=== PATIENT | female | born 1950 | race Two or more races ===

== ENCOUNTER → 2017-08-08 | Outpatient (REF) | payer MEDICARE ==
[2017-08-08 16:29] LABS: ALBUMIN 3.7 GM/DL (3.2-5.2); ALBUMIN/GLOBULIN RATIO 0.95 (1.00-1.93); ALKALINE PHOSPHATASE 78 U/L (45-117); ALT/SGPT 27 U/L (12-78); ANION GAP 11 MEQ/L (8-16); AST/SGOT 19 U/L (7-37); BILIRUBIN,TOTAL 0.2 MG/DL (0.2-1.0); BLOOD UREA NITROGEN 28 MG/DL (7-18); CALCIUM LEVEL 9.3 MG/DL (8.8-10.2); CARBON DIOXIDE LEVEL 22 MEQ/L (21-32); CHLORIDE LEVEL 110 MEQ/L (98-107); CREATININE FOR GFR 1.13 MG/DL (0.55-1.30); GLOMERULAR FILTRATION RATE 51.1 (>45); GLUCOSE, FASTING 130 MG/DL (70-100); POTASSIUM SERUM 4.3 MEQ/L (3.5-5.1); SODIUM LEVEL 143 MEQ/L (136-145); TOTAL PROTEIN 7.6 GM/DL (6.4-8.2)
== END ==
LOC: M SFHCPLAZ 14:27
DX: E11.8 Type 2 diabetes mellitus with unspecified complications (principal)
CPT/HCPCS: 80053

== ENCOUNTER 2017-12-07 20:04 | Inpatient (IN) | payer MEDICARE, MEDICAID ==
[2017-12-07 20:59] LABS: BASO % 0.2 % (0.0-1.0); EOS # 0.2 10^3/uL (0.0-0.50); EOS % 1.4 % (0.0-3.0); HEMATOCRIT 30.2 % (36.0-47.0); HEMOGLOBIN 9.5 g/dl (12.0-15.5); IMMATURE GRANULOCYTE % 0.3 % (0-3.0); LYMPH # 2.3 10^3/uL (1.5-4.5); LYMPH % 18.1 % (24.0-44.0); MEAN CORPUSCULAR HEMOGLOBIN 26.1 pg (27.0-33.0); MEAN CORPUSCULAR HGB CONC 31.5 g/dl (32.0-36.5); MONO % 7.7 % (0.0-5.0); NEUTROPHILS # 9.1 10^3/uL (1.8-7.7); NEUTROPHILS % 72.3 % (36.0-66.0); PLATELET COUNT, AUTOMATED 286 10^3/uL (150-450); RED BLOOD COUNT 3.64 10^6/uL (4.00-5.40); RED CELL DISTRIBUTION WIDTH 14.6 % (11.5-14.5); WHITE BLOOD COUNT 12.6 10^3/uL (4.0-10.0)
[2017-12-07] MEDS: ATORVASTATIN 20 MG TAB PO ×2 (21:00→23:00)
[2017-12-07] MEDS ORDERED: METOPROLOL TART 50 MG TAB PO (21:00)
[2017-12-07 21:03] LABS: INR 1.03; PROTHROMBIN TIME 13.7 SECONDS (12.1-14.4)
[2017-12-07 21:04] LABS: PARTIAL THROMBOPLASTIN TIME 22.1 SECONDS (25.4-37.6)
[2017-12-07 21:12] LABS: ALBUMIN 3.5 GM/DL (3.2-5.2); ALKALINE PHOSPHATASE 74 U/L (45-117); ALT/SGPT 23 U/L (12-78); ANION GAP 9 MEQ/L (8-16); AST/SGOT 21 U/L (7-37); BILIRUBIN,DIRECT < 0.1 MG/DL (0.0-0.2); BILIRUBIN,TOTAL 0.2 MG/DL (0.2-1.0); BLOOD UREA NITROGEN 27 MG/DL (7-18); C REACTIVE PROTEIN QUANTITATIV 1.15 MG/DL (0.00-0.30); CALCIUM LEVEL 9.4 MG/DL (8.8-10.2); CARBON DIOXIDE LEVEL 28 MEQ/L (21-32); CHLORIDE LEVEL 103 MEQ/L (98-107); CPK CREATINE PHOSPHOKINASE 294 U/L (26-192); CREATININE FOR GFR 1.29 MG/DL (0.55-1.30); GLOMERULAR FILTRATION RATE 43.9 (>45); GLUCOSE, FASTING 139 MG/DL (70-100); POTASSIUM SERUM 3.8 MEQ/L (3.5-5.1); SODIUM LEVEL 140 MEQ/L (136-145); TOTAL PROTEIN 7.4 GM/DL (6.4-8.2); TROPONIN I < 0.02 NG/ML (< 0.10)
[2017-12-07 21:18] LABS: CK-MB VALUE MASS 2.4 NG/ML (<3.6); MB/CK RELATIVE INDEX 0.81 (< OR =4)
[2017-12-07] MEDS: ONDANSETRON 4MG/2ML VIAL (J2405) IV (21:20)
[2017-12-07] MEDS: NS 1,000 ML IV (21:20)
[2017-12-07] MEDS: ASPIRIN 81 MG CHEW TABLET PO (23:00)
[2017-12-07] MEDS ORDERED: ADENOSINE 6MG/2ML INJECTION (J0153) As Ordered (23:08)
[2017-12-07] MEDS ORDERED: ADENOSINE 6MG/2ML INJECTION (J0153) IV (23:09)
[2017-12-08] MEDS ORDERED: METOPROLOL 5 MG/5 ML VIAL IV (00:30)
[2017-12-08 04:30] LABS: HEMATOCRIT 30.1 % (36.0-47.0); HEMOGLOBIN 9.3 g/dl (12.0-15.5); MEAN CORPUSCULAR HEMOGLOBIN 25.8 pg (27.0-33.0); MEAN CORPUSCULAR HGB CONC 30.9 g/dl (32.0-36.5); MEAN CORPUSCULAR VOLUME 83.4 fl (80.0-96.0); PLATELET COUNT, AUTOMATED 273 10^3/uL (150-450); RED BLOOD COUNT 3.61 10^6/uL (4.00-5.40); RED CELL DISTRIBUTION WIDTH 14.8 % (11.5-14.5); WHITE BLOOD COUNT 13.9 10^3/uL (4.0-10.0)
[2017-12-08 04:48] LABS: ESTIMATED AVERAGE GLUCOSE 146 MG/DL (60-110); HEMOGLOBIN A1c 6.7 %
[2017-12-08] MEDS ORDERED: PREVNAR 13 VACCINE SYRINGE (CPT CODE:90670) IM (05:15)
[2017-12-08 05:16] LABS: ALBUMIN 3.2 GM/DL (3.2-5.2); ALBUMIN/GLOBULIN RATIO 0.74 (1.00-1.93); ALKALINE PHOSPHATASE 66 U/L (45-117); ALT/SGPT 21 U/L (12-78); ANION GAP 7 MEQ/L (8-16); AST/SGOT 22 U/L (7-37); BILIRUBIN,TOTAL 0.2 MG/DL (0.2-1.0); BLOOD UREA NITROGEN 23 MG/DL (7-18); CARBON DIOXIDE LEVEL 28 MEQ/L (21-32); CHLORIDE LEVEL 105 MEQ/L (98-107); CHOLESTEROL LEVEL 158 MG/DL (<200); CHOLESTEROL RISK RATIO 2.771 (<5); CREATININE FOR GFR 1.21 MG/DL (0.55-1.30); GLOMERULAR FILTRATION RATE 47.2 (>45); GLUCOSE, FASTING 121 MG/DL (70-100); HDL CHOLESTEROL 57 MG/DL (>40); LDL CHOLESTEROL 65.6 MG/DL (<100); NON-HDL-C 101 MG/DL; POTASSIUM SERUM 3.6 MEQ/L (3.5-5.1); SODIUM LEVEL 140 MEQ/L (136-145); TOTAL PROTEIN 7.5 GM/DL (6.4-8.2); TRIGLYCERIDES LEVEL 177 MG/DL (<150)
[2017-12-08] MEDS ORDERED: PRAZOSIN 1 MG CAP PO (09:00)
[2017-12-08] MEDS: ASPIRIN 81 MG CHEW TABLET PO (09:49)
[2017-12-08] MEDS: OMEPRAZOLE 20 MG CAP PO (09:49)
[2017-12-08] MEDS: NS 1,000 ML IV ×2 (09:49→23:14)
[2017-12-08] MEDS: QUEtiapine FUMARATE 200 MG TAB PO (09:49)
[2017-12-08] MEDS: LORATADINE 10 MG TAB PO (09:50)
[2017-12-08 11:26] LABS: INR 1.05; PROTHROMBIN TIME 13.8 SECONDS (12.1-14.4)
[2017-12-08] MEDS: ATENOLOL 25 MG TAB PO (16:08)
[2017-12-08] MEDS ORDERED: PROHANCE 279.3MG/ML 15ML VIAL (A9576) As Ordered (17:12)
[2017-12-08] MEDS: NS 500 ML IV (18:29)
[2017-12-08] MEDS: WARFARIN SOD 5 MG TAB PO (18:30)
[2017-12-08] MEDS: ATENOLOL 12.5MG PER 1/2 TABLET PO (20:17)
[2017-12-08] MEDS: LATANOPROST 0.005% OPHTH SOLN 2.5 ML OU (20:19)
[2017-12-08] MEDS: ATORVASTATIN 20 MG TAB PO (20:19)
[2017-12-09 04:12] LABS: BASO % 0.3 % (0.0-1.0); EOS # 0.5 10^3/uL (0.0-0.50); EOS % 3.6 % (0.0-3.0); HEMATOCRIT 26.4 % (36.0-47.0); HEMOGLOBIN 8.2 g/dl (12.0-15.5); IMMATURE GRANULOCYTE % 0.5 % (0-3.0); LYMPH % 19.8 % (24.0-44.0); MEAN CORPUSCULAR HEMOGLOBIN 25.9 pg (27.0-33.0); MEAN CORPUSCULAR HGB CONC 31.1 g/dl (32.0-36.5); MEAN CORPUSCULAR VOLUME 83.3 fl (80.0-96.0); MONO # 1.3 10^3/uL (0.0-0.8); MONO % 8.5 % (0.0-5.0); NEUTROPHILS % 67.3 % (36.0-66.0); PLATELET COUNT, AUTOMATED 249 10^3/uL (150-450); RED BLOOD COUNT 3.17 10^6/uL (4.00-5.40); RED CELL DISTRIBUTION WIDTH 15.2 % (11.5-14.5); WHITE BLOOD COUNT 14.9 10^3/uL (4.0-10.0)
[2017-12-09 04:30] LABS: ALBUMIN 2.7 GM/DL (3.2-5.2); ALBUMIN/GLOBULIN RATIO 0.68 (1.00-1.93); ALKALINE PHOSPHATASE 55 U/L (45-117); ALT/SGPT 17 U/L (12-78); ANION GAP 6 MEQ/L (8-16); AST/SGOT 15 U/L (7-37); BILIRUBIN,TOTAL 0.2 MG/DL (0.2-1.0); BLOOD UREA NITROGEN 19 MG/DL (7-18); CALCIUM LEVEL 7.7 MG/DL (8.8-10.2); CARBON DIOXIDE LEVEL 27 MEQ/L (21-32); CHLORIDE LEVEL 109 MEQ/L (98-107); CREATININE FOR GFR 1.13 MG/DL (0.55-1.30); GLOMERULAR FILTRATION RATE 51.1 (>45); GLUCOSE, FASTING 107 MG/DL (70-100); POTASSIUM SERUM 3.9 MEQ/L (3.5-5.1); SODIUM LEVEL 142 MEQ/L (136-145); TOTAL PROTEIN 6.7 GM/DL (6.4-8.2)
[2017-12-09] MEDS: QUEtiapine FUMARATE 200 MG TAB PO (08:10)
[2017-12-09] MEDS: OMEPRAZOLE 20 MG CAP PO (08:11)
[2017-12-09] MEDS: ASPIRIN 81 MG CHEW TABLET PO (08:11)
[2017-12-09] MEDS: LORATADINE 10 MG TAB PO (08:11)
[2017-12-09] MEDS: ATENOLOL 12.5MG PER 1/2 TABLET PO ×2 (08:11→21:46)
[2017-12-09 11:35] LABS: PROTHROMBIN TIME 15.4 SECONDS (12.1-14.4)
[2017-12-09 16:10] LABS: BASO % 0.3 % (0.0-1.0); EOS # 0.8 10^3/uL (0.0-0.50); HEMATOCRIT 26.4 % (36.0-47.0); HEMOGLOBIN 8.3 g/dl (12.0-15.5); IMMATURE GRANULOCYTE % 0.3 % (0-3.0); LYMPH % 19.8 % (24.0-44.0); MEAN CORPUSCULAR HEMOGLOBIN 25.9 pg (27.0-33.0); MEAN CORPUSCULAR HGB CONC 31.4 g/dl (32.0-36.5); MEAN CORPUSCULAR VOLUME 82.5 fl (80.0-96.0); MONO # 1.4 10^3/uL (0.0-0.8); MONO % 9.1 % (0.0-5.0); NEUTROPHILS # 9.9 10^3/uL (1.8-7.7); NEUTROPHILS % 65.5 % (36.0-66.0); PLATELET COUNT, AUTOMATED 269 10^3/uL (150-450); RED CELL DISTRIBUTION WIDTH 15.2 % (11.5-14.5); WHITE BLOOD COUNT 15.2 10^3/uL (4.0-10.0)
[2017-12-09] MEDS: WARFARIN SOD 5 MG TAB PO (16:36)
[2017-12-09] MEDS: ATORVASTATIN 20 MG TAB PO (21:45)
[2017-12-09] MEDS: LATANOPROST 0.005% OPHTH SOLN 2.5 ML OU (21:45)
[2017-12-10 05:37] LABS: BASO % 0.2 % (0.0-1.0); EOS # 0.8 10^3/uL (0.0-0.50); EOS % 6.2 % (0.0-3.0); HEMATOCRIT 28.6 % (36.0-47.0); IMMATURE GRANULOCYTE % 0.4 % (0-3.0); LYMPH # 2.2 10^3/uL (1.5-4.5); LYMPH % 16.6 % (24.0-44.0); MEAN CORPUSCULAR HEMOGLOBIN 26.1 pg (27.0-33.0); MEAN CORPUSCULAR HGB CONC 31.5 g/dl (32.0-36.5); MEAN CORPUSCULAR VOLUME 82.9 fl (80.0-96.0); MONO % 7.8 % (0.0-5.0); NEUTROPHILS # 9.2 10^3/uL (1.8-7.7); NEUTROPHILS % 68.8 % (36.0-66.0); PLATELET COUNT, AUTOMATED 299 10^3/uL (150-450); RED BLOOD COUNT 3.45 10^6/uL (4.00-5.40); RED CELL DISTRIBUTION WIDTH 15.2 % (11.5-14.5); WHITE BLOOD COUNT 13.3 10^3/uL (4.0-10.0)
[2017-12-10 05:46] LABS: INR 1.58; PROTHROMBIN TIME 19.2 SECONDS (12.1-14.4)
[2017-12-10 05:56] LABS: ALBUMIN/GLOBULIN RATIO 0.71 (1.00-1.93); ALKALINE PHOSPHATASE 68 U/L (45-117); ALT/SGPT 18 U/L (12-78); ANION GAP 5 MEQ/L (8-16); AST/SGOT 15 U/L (7-37); BILIRUBIN,TOTAL 0.1 MG/DL (0.2-1.0); BLOOD UREA NITROGEN 19 MG/DL (7-18); CALCIUM LEVEL 8.3 MG/DL (8.8-10.2); CARBON DIOXIDE LEVEL 27 MEQ/L (21-32); CHLORIDE LEVEL 109 MEQ/L (98-107); CREATININE FOR GFR 1.04 MG/DL (0.55-1.30); GLOMERULAR FILTRATION RATE 56.3 (>45); GLUCOSE, FASTING 120 MG/DL (70-100); MAGNESIUM LEVEL 2.1 MG/DL (1.8-2.4); SODIUM LEVEL 141 MEQ/L (136-145); TOTAL PROTEIN 7.2 GM/DL (6.4-8.2)
[2017-12-10] MEDS: LORATADINE 10 MG TAB PO (08:15)
[2017-12-10] MEDS: QUEtiapine FUMARATE 200 MG TAB PO (08:15)
[2017-12-10] MEDS: OMEPRAZOLE 20 MG CAP PO (08:15)
[2017-12-10] MEDS: ATENOLOL 12.5MG PER 1/2 TABLET PO (08:16)
== END 2017-12-10 14:35 | disposition home health service (06) | DRG 65 ==
LOC: M ED INP 12-08 00:21 → M ICU 12-08 02:23 → M ED 20:04
DX: I63.441 Cerebral infarction due to embolism of right cerebellar artery (principal); G81.94 Hemiplegia, unspecified affecting left nondominant side; I48.0 Paroxysmal atrial fibrillation; I10 Essential (primary) hypertension; E78.2 Mixed hyperlipidemia; F32.9 Major depressive disorder, single episode, unspecified; F41.9 Anxiety disorder, unspecified; D64.9 Anemia, unspecified; K21.9 Gastro-esophageal reflux disease without esophagitis; R26.81 Unsteadiness on feet; E66.3 Overweight; F40.240 Claustrophobia; Z79.84 Long term (current) use of oral hypoglycemic drugs; Z79.899 Other long term (current) drug therapy; Z88.1 Allergy status to other antibiotic agents; Z68.29 Body mass index [BMI] 29.0-29.9, adult; R29.810 Facial weakness

== ENCOUNTER → 2017-12-11 | Outpatient (REF) | payer MEDICARE, MEDICAID ==
[2017-12-11 12:53] LABS: INR 2.93; PROTHROMBIN TIME 31.2 SECONDS (12.1-14.4)
== END ==
LOC: M LABDRAWP 11:45
DX: I63.10 Cerebral infarction due to embolism of unspecified precerebral artery (principal)
CPT/HCPCS: 85610

== ENCOUNTER → 2017-12-16 | Outpatient (REF) | payer MEDICARE, MEDICAID ==
[2017-12-16 17:49] LABS: BASO % 0.3 % (0.0-1.0); EOS # 0.6 10^3/uL (0.0-0.50); EOS % 4.9 % (0.0-3.0); HEMATOCRIT 30.1 % (36.0-47.0); HEMOGLOBIN 9.1 g/dl (12.0-15.5); IMMATURE GRANULOCYTE % 0.6 % (0-3.0); LYMPH # 3.5 10^3/uL (1.5-4.5); LYMPH % 26.7 % (24.0-44.0); MEAN CORPUSCULAR HEMOGLOBIN 25.3 pg (27.0-33.0); MEAN CORPUSCULAR HGB CONC 30.2 g/dl (32.0-36.5); MEAN CORPUSCULAR VOLUME 83.6 fl (80.0-96.0); MONO # 1.1 10^3/uL (0.0-0.8); NEUTROPHILS # 7.8 10^3/uL (1.8-7.7); NEUTROPHILS % 59.5 % (36.0-66.0); PLATELET COUNT, AUTOMATED 412 10^3/uL (150-450); RED CELL DISTRIBUTION WIDTH 14.9 % (11.5-14.5); WHITE BLOOD COUNT 13.2 10^3/uL (4.0-10.0)
[2017-12-16 18:07] LABS: PROTHROMBIN TIME 72.4 SECONDS (12.1-14.4)
[2017-12-16 18:08] LABS: PARTIAL THROMBOPLASTIN TIME 57.5 SECONDS (25.4-37.6)
[2017-12-16 18:15] LABS: ALBUMIN 3.2 GM/DL (3.2-5.2); ANION GAP 9 MEQ/L (8-16); BLOOD UREA NITROGEN 26 MG/DL (7-18); CALCIUM LEVEL 9.5 MG/DL (8.8-10.2); CARBON DIOXIDE LEVEL 27 MEQ/L (21-32); CHLORIDE LEVEL 105 MEQ/L (98-107); CREATININE FOR GFR 1.41 MG/DL (0.55-1.30); FERRITIN 9 NG/ML (8-252); GLOMERULAR FILTRATION RATE 39.6 (>45); GLUCOSE, FASTING 99 MG/DL (70-100); IRON (FE) 18 UG/DL (50-170); PERCENT SATURATION 4.5 % (13.2-45.0); PHOSPHORUS LEVEL 4.2 MG/DL (2.5-4.9); POTASSIUM SERUM 5.1 MEQ/L (3.5-5.1); SODIUM LEVEL 141 MEQ/L (136-145); TOTAL IRON BINDING CAPACITY 399 UG/DL (250-450)
[2017-12-16 18:21] LABS: CARCINOEMBRYONIC ANTIGEN < 0.5 NG/ML (<2.5); VITAMIN B12 LEVEL 724 PG/ML (247-911)
[2017-12-16 18:41] LABS: INR 8.45
== END ==
LOC: M LABDRAWP 17:32
DX: I63.10 Cerebral infarction due to embolism of unspecified precerebral artery (principal); D50.9 Iron deficiency anemia, unspecified; I10 Essential (primary) hypertension; E78.5 Hyperlipidemia, unspecified; Z79.01 Long term (current) use of anticoagulants
CPT/HCPCS: 82378

== ENCOUNTER → 2017-12-17 | Outpatient (REF) | payer MEDICARE ==
[2017-12-17 11:43] LABS: BASO # 0.1 10^3/uL (0.0-0.2); BASO % 0.4 % (0.0-1.0); EOS # 0.7 10^3/uL (0.0-0.50); EOS % 5.8 % (0.0-3.0); HEMATOCRIT 31.1 % (36.0-47.0); HEMOGLOBIN 9.5 g/dl (12.0-15.5); IMMATURE GRANULOCYTE % 0.5 % (0-3.0); LYMPH # 2.6 10^3/uL (1.5-4.5); LYMPH % 21.1 % (24.0-44.0); MEAN CORPUSCULAR HEMOGLOBIN 25.7 pg (27.0-33.0); MEAN CORPUSCULAR HGB CONC 30.5 g/dl (32.0-36.5); MEAN CORPUSCULAR VOLUME 84.3 fl (80.0-96.0); MONO # 0.8 10^3/uL (0.0-0.8); MONO % 6.7 % (0.0-5.0); NEUTROPHILS # 8.1 10^3/uL (1.8-7.7); NEUTROPHILS % 65.5 % (36.0-66.0); PLATELET COUNT, AUTOMATED 444 10^3/uL (150-450); RED BLOOD COUNT 3.69 10^6/uL (4.00-5.40); WHITE BLOOD COUNT 12.3 10^3/uL (4.0-10.0)
[2017-12-17 11:57] LABS: PARTIAL THROMBOPLASTIN TIME 62.8 SECONDS (25.4-37.6); PROTHROMBIN TIME 71.7 SECONDS (12.1-14.4)
[2017-12-17 11:59] LABS: INR 8.35
== END ==
LOC: M SFHCPLAZ 10:06
DX: I63.10 Cerebral infarction due to embolism of unspecified precerebral artery (principal)
CPT/HCPCS: 85610

== ENCOUNTER → 2017-12-18 | Outpatient (REF) | payer MEDICARE ==
[2017-12-18 12:48] LABS: PARTIAL THROMBOPLASTIN TIME 56.4 SECONDS (25.4-37.6); PROTHROMBIN TIME 70.5 SECONDS (12.1-14.4)
[2017-12-18 13:09] LABS: INR 8.17
== END ==
LOC: M LABDRAWP 12:05
DX: Z51.81 Encounter for therapeutic drug level monitoring (principal); Z79.01 Long term (current) use of anticoagulants
CPT/HCPCS: 85610

== ENCOUNTER → 2018-04-20 | Outpatient (REF) | payer MEDICARE ==
[2018-04-20 16:03] LABS: BASO % 0.3 % (0.0-1.0); EOS # 0.5 10^3/uL (0.0-0.50); EOS % 4.2 % (0.0-3.0); HEMOGLOBIN 7.7 g/dl (12.0-15.5); IMMATURE GRANULOCYTE % 0.3 % (0-3.0); LYMPH # 2.5 10^3/uL (1.5-4.5); LYMPH % 21.7 % (24.0-44.0); MEAN CORPUSCULAR HEMOGLOBIN 22.1 pg (27.0-33.0); MEAN CORPUSCULAR HGB CONC 28.5 g/dl (32.0-36.5); MEAN CORPUSCULAR VOLUME 77.4 fl (80.0-96.0); MONO # 1.2 10^3/uL (0.0-0.8); MONO % 10.5 % (0.0-5.0); NEUTROPHILS # 7.4 10^3/uL (1.8-7.7); PLATELET COUNT, AUTOMATED 330 10^3/uL (150-450); RED BLOOD COUNT 3.49 10^6/uL (4.00-5.40); RED CELL DISTRIBUTION WIDTH 17.2 % (11.5-14.5); WHITE BLOOD COUNT 11.7 10^3/uL (4.0-10.0)
[2018-04-20 16:23] LABS: ESTIMATED AVERAGE GLUCOSE 154 MG/DL (60-110)
[2018-04-20 16:37] LABS: ALBUMIN 3.1 GM/DL (3.2-5.2); ALBUMIN/GLOBULIN RATIO 0.79 (1.00-1.93); ALKALINE PHOSPHATASE 73 U/L (45-117); ALT/SGPT 25 U/L (12-78); ANION GAP 11 MEQ/L (8-16); AST/SGOT 22 U/L (7-37); BILIRUBIN,TOTAL 0.3 MG/DL (0.2-1.0); BLOOD UREA NITROGEN 16 MG/DL (7-18); CALCIUM LEVEL 8.5 MG/DL (8.8-10.2); CARBON DIOXIDE LEVEL 23 MEQ/L (21-32); CHLORIDE LEVEL 109 MEQ/L (98-107); CHOLESTEROL LEVEL 141 MG/DL (<200); CREATININE FOR GFR 1.11 MG/DL (0.55-1.30); FERRITIN 5 NG/ML (8-252); GLOMERULAR FILTRATION RATE 52.2 (>45); GLUCOSE, FASTING 99 MG/DL (70-100); HDL CHOLESTEROL 53 MG/DL (>40); IRON (FE) 11 UG/DL (50-170); LDL CHOLESTEROL 57 MG/DL (<100); NON-HDL-C 88 MG/DL; PERCENT SATURATION 2.5 % (13.2-45.0); POTASSIUM SERUM 4.3 MEQ/L (3.5-5.1); SODIUM LEVEL 143 MEQ/L (136-145); TOTAL IRON BINDING CAPACITY 434 UG/DL (250-450); TRIGLYCERIDES LEVEL 154 MG/DL (<150)
== END ==
LOC: M SFHCPLAZ 14:03
DX: D50.9 Iron deficiency anemia, unspecified (principal); E78.5 Hyperlipidemia, unspecified; E11.8 Type 2 diabetes mellitus with unspecified complications
CPT/HCPCS: 83550

== ENCOUNTER 2018-04-21 08:53 | Observation (INO) | payer MEDICARE ==
[2018-04-21 09:43] LABS: BASO % 0.3 % (0.0-1.0); EOS # 0.4 10^3/uL (0.0-0.50); EOS % 3.5 % (0.0-3.0); HEMATOCRIT 25.4 % (36.0-47.0); HEMOGLOBIN 7.5 g/dl (12.0-15.5); IMMATURE GRANULOCYTE % 0.2 % (0-3.0); LYMPH # 2.3 10^3/uL (1.5-4.5); LYMPH % 18.9 % (24.0-44.0); MEAN CORPUSCULAR HEMOGLOBIN 22.3 pg (27.0-33.0); MEAN CORPUSCULAR HGB CONC 29.5 g/dl (32.0-36.5); MEAN CORPUSCULAR VOLUME 75.6 fl (80.0-96.0); MONO # 1.2 10^3/uL (0.0-0.8); MONO % 9.9 % (0.0-5.0); NEUTROPHILS # 8.4 10^3/uL (1.8-7.7); NEUTROPHILS % 67.2 % (36.0-66.0); PLATELET COUNT, AUTOMATED 361 10^3/uL (150-450); RED BLOOD COUNT 3.36 10^6/uL (4.00-5.40); RED CELL DISTRIBUTION WIDTH 17.2 % (11.5-14.5); WHITE BLOOD COUNT 12.4 10^3/uL (4.0-10.0)
[2018-04-21 10:01] LABS: INR 2.03; PARTIAL THROMBOPLASTIN TIME 34.3 SECONDS (25.4-37.6); PROTHROMBIN TIME 23.4 SECONDS (12.1-14.4)
[2018-04-21 10:11] LABS: ALBUMIN/GLOBULIN RATIO 0.77 (1.00-1.93); ALKALINE PHOSPHATASE 64 U/L (45-117); ALT/SGPT 25 U/L (12-78); ANION GAP 9 MEQ/L (8-16); AST/SGOT 21 U/L (7-37); BILIRUBIN,DIRECT < 0.1 MG/DL (0.0-0.2); BILIRUBIN,TOTAL 0.2 MG/DL (0.2-1.0); BLOOD UREA NITROGEN 17 MG/DL (7-18); CALCIUM LEVEL 8.7 MG/DL (8.8-10.2); CARBON DIOXIDE LEVEL 24 MEQ/L (21-32); CHLORIDE LEVEL 110 MEQ/L (98-107); CPK CREATINE PHOSPHOKINASE 281 U/L (26-192); CREATININE FOR GFR 1.22 MG/DL (0.55-1.30); GLOMERULAR FILTRATION RATE 46.8 (>45); GLUCOSE, FASTING 106 MG/DL (70-100); MB/CK RELATIVE INDEX 1.32 (< OR =4); POTASSIUM SERUM 4.7 MEQ/L (3.5-5.1); SODIUM LEVEL 143 MEQ/L (136-145); TOTAL PROTEIN 6.9 GM/DL (6.4-8.2); TROPONIN I 0.03 NG/ML (< 0.10)
[2018-04-21 13:22] LABS: IMMEDIATE SPIN CROSSMATCH 1 2
[2018-04-21 14:05] LABS: CPK CREATINE PHOSPHOKINASE 261 U/L (26-192); MB/CK RELATIVE INDEX 1.26 (< OR =4); TROPONIN I 0.03 NG/ML (< 0.10)
== END 2018-04-21 15:18 | disposition home or self-care (01) ==
LOC: M ED 08:53 → M ED INP 12:59
DX: D64.9 Anemia, unspecified (principal); K92.1 Melena; Z86.73 Personal history of transient ischemic attack (TIA), and cerebral infarction without residual deficits; Z79.01 Long term (current) use of anticoagulants; I48.91 Unspecified atrial fibrillation; E11.9 Type 2 diabetes mellitus without complications; I10 Essential (primary) hypertension; I25.2 Old myocardial infarction; Z88.1 Allergy status to other antibiotic agents
CPT/HCPCS: 93005

== ENCOUNTER → 2018-05-12 | Outpatient (REF) | payer MEDICARE ==
[~2018-05-12] MED LIST: /ESOM40CA OR; /WARF3TA OR; ABIL10TA OR; ACET65TA OR; AMBI10TA OR; AMLO2.5T2 PO; AMLO5TAB4 PO; AMLODIPINE PO; ATEN25TA PO; ATOR1TAB21 PO; ATOR40TA75 PO; AUGM875T28 PO; BENT20TA OR; BENZ1TAB OR; CLOT1CRE6 TOP; CLOTPOW TOP; COLA100C2 OR; DEPA500T2 OR; FLUTICASONE; FLUTISP NARES; HYDR25TA8 OR; LATA5OPD OU; LATANOPROST; LIPI10TA OR; LORA-243 PO; METF10004 PO; MULTIVIT PO; OMEP40CA2 PO; PAXI20TA OR; PRAV80TA2 PO; PRAVASTATIN PO; PRAZ2CAP PO; PRAZOSIN; QUET30TA OR; QUET400T PO; QUETIAPINE; SENO8.6T5 OR; SING10TA31 OR; SYMB80AE IN; TRAM50TA2 OR; VENTAER IN; WARF-23 PO; XALA0.007 OU; XARE20TA PO
[2018-05-12 18:06] LABS: BASO # 0.1 10^3/uL (0.0-0.2); BASO % 0.4 % (0.0-1.0); EOS # 0.6 10^3/uL (0.0-0.50); EOS % 4.7 % (0.0-3.0); HEMATOCRIT 36.2 % (36.0-47.0); HEMOGLOBIN 10.6 g/dl (12.0-15.5); LYMPH % 25.6 % (24.0-44.0); MEAN CORPUSCULAR HEMOGLOBIN 23.9 pg (27.0-33.0); MEAN CORPUSCULAR HGB CONC 29.3 g/dl (32.0-36.5); MEAN CORPUSCULAR VOLUME 81.5 fl (80.0-96.0); MONO # 0.8 10^3/uL (0.0-0.8); NEUTROPHILS # 7.3 10^3/uL (1.8-7.7); PLATELET COUNT, AUTOMATED 349 10^3/uL (150-450); RED BLOOD COUNT 4.44 10^6/uL (4.00-5.40); WHITE BLOOD COUNT 11.8 10^3/uL (4.0-10.0)
[2018-05-12 18:56] LABS: PERCENT SATURATION 7.7 % (13.2-45.0)
== END ==
LOC: M SFHCPLAZ 15:11
PROVIDERS: ATTEND Physician Assistant Medical
DX: D50.9 Iron deficiency anemia, unspecified (principal); E11.8 Type 2 diabetes mellitus with unspecified complications
CPT/HCPCS: 36415; 69209; 82728; 83036; 83550; 85025; G0463

== ENCOUNTER → 2018-08-11 | Outpatient (REF) | payer MEDICARE ==
[~2018-08-11] MED LIST changes: -AMLO2.5T2 PO; +AMLO2.5T3 PO; -AMLO5TAB4 PO; +AMLO5TAB6 PO
[2018-08-11 18:37] LABS: BASO % 0.3 % (0.0-1.0); EOS # 0.4 10^3/uL (0.0-0.50); EOS % 3.4 % (0.0-3.0); HEMATOCRIT 36.7 % (36.0-47.0); HEMOGLOBIN 11.5 g/dl (12.0-15.5); LYMPH # 2.9 10^3/uL (1.5-4.5); MEAN CORPUSCULAR HEMOGLOBIN 26.8 pg (27.0-33.0); MEAN CORPUSCULAR HGB CONC 31.3 g/dl (32.0-36.5); MEAN CORPUSCULAR VOLUME 85.5 fl (80.0-96.0); MONO # 0.8 10^3/uL (0.0-0.8); MONO % 7.3 % (0.0-5.0); NEUTROPHILS # 6.6 10^3/uL (1.8-7.7); NEUTROPHILS % 61.8 % (36.0-66.0); PLATELET COUNT, AUTOMATED 315 10^3/uL (150-450); RED BLOOD COUNT 4.29 10^6/uL (4.00-5.40); WHITE BLOOD COUNT 10.7 10^3/uL (4.0-10.0)
[2018-08-11 18:47] LABS: FREE T4 0.7 NG/DL (0.76-1.46); THYROID STIMULATING HORMONE 1.41 uIU/ML (0.358-3.740)
[2018-08-11 19:26] LABS: HEMOGLOBIN A1c 6.6 %
== END ==
LOC: M SFHCPLAZ 15:09
PROVIDERS: ATTEND Physician Assistant Medical
DX: D50.9 Iron deficiency anemia, unspecified (principal); F41.8 Other specified anxiety disorders; E11.8 Type 2 diabetes mellitus with unspecified complications

== ENCOUNTER 2018-11-13 00:26 | Emergency (ER) | payer MEDICARE ==
[~2018-11-13] VITALS: Ht 167.6 cm; Wt 90.9 kg
[~2018-11-13 00:26] MED LIST changes: -/ESOM40CA OR; -/WARF3TA OR; +CLOT1CRE2 TOP; -CLOT1CRE6 TOP; +COUM1TAB19 OR; +LATA0.0013 OU; -LATA5OPD OU; +NEXI1CAP3 OR
[2018-11-13] MEDS ORDERED: traMADol 50 MG TAB PO ONE (01:30)
[2018-11-13 02:17] VITALS: BP 133/79
--- NOTE | 2018-11-13 08:51 | REP ---
RIGHT FOOT, FOUR VIEWS: There is no evidence of an acute fracture, dislocation or intrinsic bone disease. There is mild posterior calcaneal spurring. IMPRESSION: No fracture or dislocation. Electronically Signed by Kenneth Kumar MD 11/13/2018 07:23 P
== END 2018-11-13 02:23 | disposition home or self-care (01) ==
LOC: M ED 00:26
DX: S93.601A Unspecified sprain of right foot, initial encounter (principal); X50.1XXA Overexertion from prolonged static or awkward postures, initial encounter; Y92.098 Other place in other non-institutional residence as the place of occurrence of the external cause; I10 Essential (primary) hypertension; E11.9 Type 2 diabetes mellitus without complications; E78.5 Hyperlipidemia, unspecified; I25.2 Old myocardial infarction; M19.90 Unspecified osteoarthritis, unspecified site; K21.9 Gastro-esophageal reflux disease without esophagitis; Z86.73 Personal history of transient ischemic attack (TIA), and cerebral infarction without residual deficits; Z88.1 Allergy status to other antibiotic agents; Z79.899 Other long term (current) drug therapy; Z79.84 Long term (current) use of oral hypoglycemic drugs; Z79.01 Long term (current) use of anticoagulants

== ENCOUNTER → 2018-11-24 | Outpatient (REF) | payer MEDICARE ==
[2018-11-24 13:40] LABS: BASO # 0.1 10^3/uL (0.0-0.2); BASO % 0.5 % (0.0-1.0); EOS # 0.7 10^3/uL (0.0-0.50); EOS % 6.2 % (0.0-3.0); HEMATOCRIT 38.2 % (36.0-47.0); HEMOGLOBIN 11.8 g/dl (12.0-15.5); LYMPH # 2.3 10^3/uL (1.5-4.5); LYMPH % 21.4 % (24.0-44.0); MEAN CORPUSCULAR HEMOGLOBIN 27.8 pg (27.0-33.0); MEAN CORPUSCULAR HGB CONC 30.9 g/dl (32.0-36.5); MEAN CORPUSCULAR VOLUME 89.9 fl (80.0-96.0); MONO # 0.8 10^3/uL (0.0-0.8); MONO % 7.7 % (0.0-5.0); NEUTROPHILS # 6.9 10^3/uL (1.8-7.7); NEUTROPHILS % 63.8 % (36.0-66.0); PLATELET COUNT, AUTOMATED 367 10^3/uL (150-450); RED BLOOD COUNT 4.25 10^6/uL (4.00-5.40); WHITE BLOOD COUNT 10.8 10^3/uL (4.0-10.0)
[2018-11-24 14:06] LABS: ALBUMIN 3.7 GM/DL (3.2-5.2); BILIRUBIN,TOTAL 0.2 MG/DL (0.2-1.0); CALCIUM LEVEL 12.4 MG/DL (8.8-10.2); CREATININE FOR GFR 1.68 MG/DL (0.55-1.30); GLOMERULAR FILTRATION RATE 32.3 (>45); PERCENT SATURATION 12.1 % (13.2-45.0); POTASSIUM SERUM 4.6 MEQ/L (3.5-5.1)
== END ==
LOC: M SFHCPLAZ 10:51
PROVIDERS: ATTEND Physician Assistant Medical
DX: E78.00 Pure hypercholesterolemia, unspecified (principal); E66.9 Obesity, unspecified; D50.9 Iron deficiency anemia, unspecified
CPT/HCPCS: 36415; 80053; 82728; 83036; 83550; 85025; G0463

== ENCOUNTER → 2018-12-24 | Outpatient (CLI) | payer MEDICARE, MEDICAID ==
--- NOTE | 2018-12-24 12:09 | REP ---
BILATERAL SCREENING DIGITAL MAMMOGRAM WITH 3D TOMOSYNTHESIS: There are no palpable abnormalities or other breast complaints. The the patient states she is not had a clinical breast examination in over a year. The the patient states she performs self-breast examinations 12 times per year. The Tyrer-Cuzick Score is: 4.2% . Comparison is 12/25/2012. There are scattered areas of fibroglandular density. There is no dominant mass, micro calcific cluster or architectural distortion that would indicate malignancy. There are no additional findings on 3D tomosynthesiss. There is no change from the prior study. Impression: BIRADS/ACR category 1 mammogram. Negative. Recommendation: Routine annual screening mammography. This mammogram was interpreted with the aid of a FDA approved computer-aided detection system. A. Negative mammogram reports should not delay biopsy if a dominant or clinically suspicious mass is present. B. Not all breast cancers are identified by mammography or tomosynthesis. C. Adenosis and dense breasts may obscure an underlying neoplasm. Patient letter M1. Electronically Signed by Kenneth Stephens MD 12/24/2018 12:01 P
== END ==
LOC: M WHC 10:44
PROVIDERS: ATTEND Physician Assistant Medical
DX: Z12.31 Encounter for screening mammogram for malignant neoplasm of breast (principal)

== ENCOUNTER 2019-03-08 17:36 | Emergency (ER) | payer MEDICAID, MEDICARE, OTHER ==
[~2019-03-08] VITALS: Ht 167.6 cm; Wt 90.9 kg
[2019-03-08 18:07] VITALS: BP 145/69
[2019-03-08] MEDS ORDERED: TAB-TAB3 PO (18:12)
[2019-03-08] MEDS ORDERED: INGR80CA PO (18:12)
[2019-03-08] MEDS ORDERED: ACETAMINOPHEN TAB 650MG DOSE (2X325MG) PO ONE (18:30)
--- NOTE | 2019-03-08 19:42 | REP ---
Bilateral knee series: 10 views. History: Trauma. Findings: Five views of each knee are presented. There is no visible fracture on either side. No subluxation or joint effusion is evident. Impression: Negative five view radiographs of each knee. Electronically Signed by Isael Louise MD 03/08/2019 07:33 P
--- NOTE | 2019-03-09 07:13 | REP ---
RIGHT HAND SERIES: Four views. HISTORY: Trauma. FINDINGS: Four views of the right hand demonstrate diffuse osteopenia. There are metallic rings overlying the proximal phalanges of the long and ring finger. No fracture or subluxation is visible. There is mild osteoarthritic spurring at the DIP joints of the fingers. IMPRESSION: Osteoarthritic changes. No traumatic abnormality noted. Metallic rings in place over the proximal phalanges of the long and ring fingers. Electronically Signed by Isael Louise MD 03/09/2019 07:46 A
== END 2019-03-08 19:57 | disposition home or self-care (01) ==
LOC: M ED 17:36
DX: Z04.1 Encounter for examination and observation following transport accident (principal); T14.8XXA Other injury of unspecified body region, initial encounter; V49.49XA Driver injured in collision with other motor vehicles in traffic accident, initial encounter; Y92.410 Unspecified street and highway as the place of occurrence of the external cause; I10 Essential (primary) hypertension; E11.9 Type 2 diabetes mellitus without complications; F33.9 Major depressive disorder, recurrent, unspecified; F41.9 Anxiety disorder, unspecified; K21.9 Gastro-esophageal reflux disease without esophagitis; E78.5 Hyperlipidemia, unspecified; Z79.899 Other long term (current) drug therapy; Z79.84 Long term (current) use of oral hypoglycemic drugs; Z79.01 Long term (current) use of anticoagulants; Z88.1 Allergy status to other antibiotic agents

== ENCOUNTER → 2019-06-10 | Outpatient (REF) | payer MEDICARE, MEDICAID ==
[~2019-06-10] MED LIST changes: +INGR80CA PO; -OMEP40CA2 PO; +OMEP40CA97 PO; +TAB-TAB3 PO
[2019-06-10 16:53] LABS: BASO # 0.1 10^3/uL (0.0-0.2); BASO % 0.5 % (0.0-1.0); EOS # 0.4 10^3/uL (0.0-0.5); EOS % 4.3 % (0.0-3.0); HEMATOCRIT 40.5 % (36.0-47.0); HEMOGLOBIN 12.9 g/dl (12.0-15.5); LYMPH # 2.3 10^3/uL (1.5-5.0); LYMPH % 23.7 % (24.0-44.0); MEAN CORPUSCULAR HEMOGLOBIN 27.8 pg (27.0-33.0); MEAN CORPUSCULAR HGB CONC 31.9 g/dl (32.0-36.5); MEAN CORPUSCULAR VOLUME 87.3 fl (80.0-96.0); MONO # 0.6 10^3/uL (0.0-0.8); MONO % 6.5 % (0.0-5.0); NEUTROPHILS # 6.2 10^3/uL (1.5-8.5); NEUTROPHILS % 64.3 % (36.0-66.0); PLATELET COUNT, AUTOMATED 264 10^3/uL (150-450); RED BLOOD COUNT 4.64 10^6/uL (4.00-5.40); WHITE BLOOD COUNT 9.6 10^3/uL (4.0-10.0)
[2019-06-10 17:01] LABS: ALBUMIN 3.7 GM/DL (3.2-5.2); BILIRUBIN,TOTAL 0.2 MG/DL (0.2-1.0); CALCIUM LEVEL 9.2 MG/DL (8.8-10.2); CHOLESTEROL RISK RATIO 2.754 (<5); CREATININE FOR GFR 1.22 MG/DL (0.55-1.30); GLOMERULAR FILTRATION RATE 46.5 (>45); POTASSIUM SERUM 4.6 MEQ/L (3.5-5.1); TOTAL PROTEIN 7.3 GM/DL (6.4-8.2)
[2019-06-10 17:21] LABS: HEMOGLOBIN A1c 6.8 %
== END ==
LOC: M SFHCPLAZ 13:50
PROVIDERS: ATTEND Physician Assistant Medical
DX: E78.00 Pure hypercholesterolemia, unspecified (principal); E66.9 Obesity, unspecified; E11.8 Type 2 diabetes mellitus with unspecified complications
CPT/HCPCS: 36415; 80053; 80061; 82550; 82728; 83036; 83540; 85025; G0463

== ENCOUNTER → 2020-04-04 | Outpatient (REF) | payer MEDICARE, MEDICAID ==
[~2020-04-04] MED LIST changes: +AMLO1TAB24 PO; -AMLO5TAB6 PO; -CLOT1CRE2 TOP; +CLOT1CRE56 TOP
[2020-04-04 14:00] LABS: BASO # 0.1 10^3/uL (0.0-0.2); BASO % 0.5 % (0.0-1.0); EOS # 0.5 10^3/uL (0.0-0.5); EOS % 5.4 % (0.0-3.0); HEMATOCRIT 37.9 % (36.0-47.0); HEMOGLOBIN 11.3 g/dl (12.0-15.5); LYMPH # 2.3 10^3/uL (1.5-5.0); LYMPH % 23.4 % (24.0-44.0); MEAN CORPUSCULAR HEMOGLOBIN 26.4 pg (27.0-33.0); MEAN CORPUSCULAR HGB CONC 29.8 g/dl (32.0-36.5); MEAN CORPUSCULAR VOLUME 88.6 fl (80.0-96.0); MONO # 0.9 10^3/uL (0.0-0.8); MONO % 9.6 % (0.0-5.0); NEUTROPHILS % 60.9 % (36.0-66.0); PLATELET COUNT, AUTOMATED 347 10^3/uL (150-450); RED BLOOD COUNT 4.28 10^6/uL (4.00-5.40); WHITE BLOOD COUNT 9.8 10^3/uL (4.0-10.0)
[2020-04-04 14:20] LABS: HEMOGLOBIN A1c 5.7 %
[2020-04-04 14:40] LABS: ALBUMIN 3.9 GM/DL (3.2-5.2); BILIRUBIN,TOTAL 0.3 MG/DL (0.2-1.0); CALCIUM LEVEL 10.9 MG/DL (8.8-10.2); CHOLESTEROL RISK RATIO 2.274 (<5); CREATININE FOR GFR 1.2 MG/DL (0.55-1.30); FREE T4 0.86 NG/DL (0.76-1.46); GLOMERULAR FILTRATION RATE 47.4 (>45); POTASSIUM SERUM 4.2 MEQ/L (3.5-5.1); THYROID STIMULATING HORMONE 2.05 uIU/ML (0.358-3.740); TOTAL PROTEIN 7.6 GM/DL (6.4-8.2)
[2020-04-04 15:09] LABS: CREATININE, URINE 92.2 MG/DL; MALB URINE SIEMENS 17.5 MG/L; MAU/CREAT RATIO 18.9 MCG/MG (0.0-30.0)
== END ==
LOC: M SFHCPLAZ 10:41
PROVIDERS: ATTEND Physician Assistant Medical
DX: E11.8 Type 2 diabetes mellitus with unspecified complications (principal); D50.9 Iron deficiency anemia, unspecified; F41.8 Other specified anxiety disorders; E78.00 Pure hypercholesterolemia, unspecified
CPT/HCPCS: 36415; 80053; 80061; 82043; 82550; 82728; 83036; 83540; 84439; 84443; 85025; G0463

== ENCOUNTER → 2022-01-09 | Outpatient (CLI) | payer MEDICARE, MEDICAID ==
[~2022-01-09] MED LIST changes: +OMEP40CA4 PO; -OMEP40CA97 PO; -QUET400T PO; +QUET400T2 PO
[2022-01-09 14:27] LABS: BASO % 0.5 % (0.0-1.0); EOS # 0.4 10^3/uL (0.0-0.5); EOS % 4.8 % (0.0-3.0); HEMATOCRIT 43.1 % (36.0-47.0); HEMOGLOBIN 13.9 g/dl (12.0-15.5); LYMPH # 1.6 10^3/uL (1.5-5.0); MEAN CORPUSCULAR HEMOGLOBIN 30.9 pg (27.0-33.0); MEAN CORPUSCULAR HGB CONC 32.3 g/dl (32.0-36.5); MEAN CORPUSCULAR VOLUME 95.8 fl (80.0-96.0); MONO # 0.5 10^3/uL (0.0-0.8); MONO % 6.4 % (2.0-8.0); NEUTROPHILS # 5.8 10^3/uL (1.5-8.5); NEUTROPHILS % 69.1 % (36.0-66.0); PLATELET COUNT, AUTOMATED 263 10^3/uL (150-450); WHITE BLOOD COUNT 8.4 10^3/uL (4.0-10.0)
[2022-01-09 15:09] LABS: ALBUMIN 3.6 GM/DL (3.2-5.2); BILIRUBIN,TOTAL 0.3 MG/DL (0.2-1.0); CALCIUM LEVEL 9.4 MG/DL (8.8-10.2); CHOLESTEROL RISK RATIO 2.592 (<5); CREATININE FOR GFR 1.35 MG/DL (0.55-1.30); GLOMERULAR FILTRATION RATE 41.2 (>39); POTASSIUM SERUM 4.4 MEQ/L (3.5-5.1); TOTAL PROTEIN 7.3 GM/DL (6.4-8.2)
[2022-01-09 17:28] LABS: HEMOGLOBIN A1c 5.7 %
== END ==
LOC: M LAB 13:31
PROVIDERS: ATTEND Physician Assistant
DX: Z79.899 Other long term (current) drug therapy (principal)

== ENCOUNTER → 2022-04-11 | Outpatient (REF) | payer MEDICARE, MEDICAID ==
[2022-04-11 18:42] LABS: ALBUMIN 3.3 GM/DL (3.2-5.2); BILIRUBIN,TOTAL 0.2 MG/DL (0.2-1.0); CALCIUM LEVEL 9.3 MG/DL (8.8-10.2); CHOLESTEROL RISK RATIO 2.849 (<5); CREATININE FOR GFR 1.2 MG/DL (0.55-1.30); GLOMERULAR FILTRATION RATE 47.1 (>39); POTASSIUM SERUM 4.4 MEQ/L (3.5-5.1); THYROID STIMULATING HORMONE 1.96 uIU/ML (0.358-3.740); TOTAL PROTEIN 6.9 GM/DL (6.4-8.2)
[2022-04-11 19:25] LABS: HEMOGLOBIN A1c 5.6 %
== END ==
LOC: M LAB REF 16:36
PROVIDERS: ATTEND Family Medicine Addiction Medicine
DX: E11.69 Type 2 diabetes mellitus with other specified complication (principal)

== ENCOUNTER 2022-05-19 11:50 | Emergency (ER) | payer MEDICARE, MEDICAID ==
[~2022-05-19] VITALS: Ht 167.6 cm; Wt 81.8 kg
[2022-05-19] MEDS ORDERED: MORPHINE 2 MG/ML 1ML VIAL IV PRN (12:05)
[2022-05-19] MEDS ORDERED: PERCOCET 5MG/325MG TAB PO ONE (12:30)
[2022-05-19] MEDS ORDERED: PERC5TAB12 PO (13:25)
[2022-05-19 13:57] VITALS: BP 150/109
== END 2022-05-19 14:05 | disposition home or self-care (01) ==
LOC: M ED 11:50 → EDBD 11:50 → M ED 14:05
DX: S42.291A Other displaced fracture of upper end of right humerus, initial encounter for closed fracture (principal); W00.0XXA Fall on same level due to ice and snow, initial encounter; I10 Essential (primary) hypertension; I25.2 Old myocardial infarction; E11.9 Type 2 diabetes mellitus without complications; K21.9 Gastro-esophageal reflux disease without esophagitis; F41.9 Anxiety disorder, unspecified; Z86.73 Personal history of transient ischemic attack (TIA), and cerebral infarction without residual deficits; Z88.1 Allergy status to other antibiotic agents; Z79.811 Long term (current) use of aromatase inhibitors; Z79.4 Long term (current) use of insulin; Z79.899 Other long term (current) drug therapy; Y99.9 Unspecified external cause status
CPT/HCPCS: 73000; 73030; 96374; 99284; J2270

== ENCOUNTER → 2022-11-28 | Outpatient (REF) | payer MEDICARE, MEDICAID ==
[~2022-11-28] MED LIST changes: +FLUT50SP17 NARES; -FLUTISP NARES; +PERC5TAB12 PO
[2022-11-28 17:23] LABS: ALBUMIN 3.6 G/DL (3.2-5.2); ALKALINE PHOSPHATASE 67 U/L (46-116); ALT/SGPT < 9 U/L (7.0-40); AST/SGOT 16 U/L (<34); BILIRUBIN,TOTAL 0.2 MG/DL (0.3-1.2); BLOOD UREA NITROGEN 20 MG/DL (9-23); CALCIUM LEVEL 8.9 MG/DL (8.3-10.6); CARBON DIOXIDE LEVEL 15 MMOL/L (20-31); CHLORIDE LEVEL 107 MMOL/L (98-107); CHOLESTEROL LEVEL 152 MG/DL (<200); CHOLESTEROL RISK RATIO 3.27 (<5); CREATININE FOR GFR 1.21 MG/DL (0.55-1.30); GLOMERULAR FILTRATION RATE 46.6 (>39); GLUCOSE, FASTING 327 MG/DL (74-106); HDL CHOLESTEROL 46.4 MG/DL (>40); LDL CHOLESTEROL 62.6 MG/DL (<100); NON-HDL-C 105.6 MG/DL; POTASSIUM SERUM 4.2 MMOL/L (3.5-5.1); SODIUM LEVEL 139 MMOL/L (136-145); TOTAL PROTEIN 6.5 G/DL (5.7-8.2); TRIGLYCERIDES LEVEL 215 MG/DL (<150)
[2022-11-28 17:27] LABS: THYROID STIMULATING HORMONE 4.107 uIU/ML (0.55-4.78)
[2022-11-28 18:28] LABS: HEMOGLOBIN A1c 5.5 % (4.0-6.0)
== END ==
LOC: M LAB REF 16:33
PROVIDERS: ATTEND Family Medicine Addiction Medicine
DX: E11.69 Type 2 diabetes mellitus with other specified complication (principal)

== ENCOUNTER → 2023-07-15 | Outpatient (REF) | payer MEDICARE, MEDICAID ==
[~2023-07-15] MED LIST changes: -FLUT50SP17 NARES; +FLUTISP NARES
[2023-07-15 14:25] LABS: ALBUMIN 4.1 G/DL (3.2-5.2); ALKALINE PHOSPHATASE 58 U/L (46-116); ALT/SGPT < 9 U/L (7.0-40); AST/SGOT 13 U/L (<34); BILIRUBIN,TOTAL 0.3 MG/DL (0.3-1.2); BLOOD UREA NITROGEN 21 MG/DL (9-23); CALCIUM LEVEL 9.3 MG/DL (8.3-10.6); CARBON DIOXIDE LEVEL 27 MMOL/L (20-31); CHLORIDE LEVEL 106 MMOL/L (98-107); CHOLESTEROL LEVEL 165 MG/DL (<200); CHOLESTEROL RISK RATIO 3.22 (<5); CREATININE FOR GFR 1.14 MG/DL (0.55-1.30); GLOMERULAR FILTRATION RATE 49.7 (>39); GLUCOSE, FASTING 95 MG/DL (74-106); HDL CHOLESTEROL 51.1 MG/DL (>40); LDL CHOLESTEROL 75.7 MG/DL (<100); NON-HDL-C 113.9 MG/DL; POTASSIUM SERUM 4.8 MMOL/L (3.5-5.1); SODIUM LEVEL 140 MMOL/L (136-145); THYROID STIMULATING HORMONE 2.011 uIU/ML (0.55-4.78); TOTAL PROTEIN 6.9 G/DL (5.7-8.2); TRIGLYCERIDES LEVEL 191 MG/DL (<150)
[2023-07-15 14:28] LABS: HEMOGLOBIN A1c 5.6 % (4.0-6.0)
== END ==
LOC: M LAB REF 13:06
PROVIDERS: ATTEND Family Medicine Addiction Medicine
DX: E11.69 Type 2 diabetes mellitus with other specified complication (principal)

== ENCOUNTER 2023-11-17 13:12 | Inpatient (IN) | payer MEDICARE, MEDICAID ==
[~2023-11-17] VITALS: Ht 167.6 cm; Wt 50.5 kg
[2023-11-17 14:43] LABS: BASO # 0.1 10^3/uL (0.0-0.2); BASO % 0.5 % (0.0-1.0); EOS # 0.4 10^3/uL (0.0-0.5); EOS % 3.9 % (0.0-3.0); HEMATOCRIT 38.1 % (36.0-47.0); HEMOGLOBIN 12.3 g/dl (12.0-15.5); LYMPH # 2.3 10^3/uL (1.5-5.0); MEAN CORPUSCULAR HEMOGLOBIN 30.5 pg (27.0-33.0); MEAN CORPUSCULAR HGB CONC 32.3 g/dl (32.0-36.5); MEAN CORPUSCULAR VOLUME 94.5 fl (80.0-96.0); MONO # 0.9 10^3/uL (0.0-0.8); MONO % 9.7 % (2.0-8.0); NEUTROPHILS % 61.6 % (36.0-66.0); PLATELET COUNT, AUTOMATED 319 10^3/uL (150-450); RED BLOOD COUNT 4.03 10^6/uL (4.00-5.40); WHITE BLOOD COUNT 9.7 10^3/uL (4.0-10.0)
[2023-11-17 15:01] LABS: AMPHETAMINES LEVEL URINE NEGATIVE (NEGATIVE)
[2023-11-17 15:02] LABS: ETHYL ALCOHOL (ETHANOL) < 0.003 % (0.000-0.010)
[2023-11-17 15:02] LABS: BARBITURATES URINE NEGATIVE (NEGATIVE); BENZODIAZEPINES URINE NEGATIVE (NEGATIVE); CANNABINOIDS URINE NEGATIVE (NEGATIVE); COCAINE METABOLITE URINE NEGATIVE (NEGATIVE); METHADONE URINE NEGATIVE (NEGATIVE); OPIATES URINE NEGATIVE (NEGATIVE); PHENCYCLIDINE URINE NEGATIVE (NEGATIVE)
[2023-11-17 15:04] LABS: SALICYLATE LEVEL < 3.0 MG/DL (<30)
[2023-11-17 15:06] LABS: THYROID STIMULATING HORMONE 1.726 uIU/ML (0.55-4.78)
[2023-11-17 15:09] LABS: ALBUMIN 3.8 G/DL (3.2-5.2); ALKALINE PHOSPHATASE 59 U/L (46-116); ALT/SGPT 15 U/L (7.0-40); AST/SGOT 31 U/L (<34); BILIRUBIN,DIRECT < 0.1 MG/DL (<0.4); BILIRUBIN,TOTAL 0.2 MG/DL (0.3-1.2); BLOOD UREA NITROGEN 25 MG/DL (9-23); CALCIUM LEVEL 9.9 MG/DL (8.3-10.6); CARBON DIOXIDE LEVEL 26 MMOL/L (20-31); CHLORIDE LEVEL 109 MMOL/L (98-107); CPK CREATINE PHOSPHOKINASE 110 U/L (34-145); GLOMERULAR FILTRATION RATE 57.9 (>39); GLUCOSE, FASTING 146 MG/DL (74-106); POTASSIUM SERUM 5.9 MMOL/L (3.5-5.1); SODIUM LEVEL 143 MMOL/L (136-145); TOTAL PROTEIN 7.1 G/DL (5.7-8.2)
[2023-11-17] MEDS ORDERED: med rec comment (17:15)
[2023-11-17] MEDS: LORazepam 2 MG TAB PO STA (18:43)
[2023-11-17] MEDS ORDERED: HOME MED LIST COMPLETE! XX SCH (19:05)
[2023-11-17] MEDS: RIVAROXABAN 20MG TAB (XARELTO) PO SCH (19:30)
[2023-11-17] MEDS: ATORVASTATIN 20 MG TAB PO ONE (19:31)
[2023-11-18] MEDS: OMEPRAZOLE 20MG CAP PO SCH (10:05)
[2023-11-18] MEDS: LORATADINE 10 MG TAB PO SCH (10:06)
[2023-11-18] MEDS: FLUTICASONE PROP 0.05% NASAL SPRAY 16 GM (FLONASE) NARES SCH (10:06)
[2023-11-18] MEDS: hydrOXYzine 50 MG TAB PO PRN (10:06)
[2023-11-18] MEDS: ATORVASTATIN 20 MG TAB PO SCH (20:41)
[2023-11-19] MEDS ORDERED: MAALOX 30 ML SUSP *UDC PO PRN (14:15)
[2023-11-19 15:30] VITALS: BP 119/62; TEMP 97.9; O2SAT 100
[2023-11-19 20:17] VITALS: BP 124/90; TEMP 97; O2SAT 97
[2023-11-19] MEDS: DOCUSATE SODIUM 100MG CAPSULE PO SCH (21:05)
[2023-11-20 13:18] VITALS: BP 124/81; TEMP 97.9; O2SAT 98
[2023-11-20 21:10] VITALS: BP 111/53; TEMP 97.4; O2SAT 97
[2023-11-21] MEDS: ACETAMINOPHEN TAB 650MG DOSE (2X325MG) PO PRN (01:30)
[2023-11-21 04:35] VITALS: BP 153/130; TEMP 97.5; O2SAT 98
[2023-11-21 04:45] VITALS: BP 153/85
[2023-11-21 20:00] VITALS: BP 160/80; TEMP 97.3; O2SAT 97
[2023-11-22] MEDS: RAMELTEON 8 MG TAB (ROZEREM) PO PRN (00:54)
[2023-11-22 05:36] VITALS: BP 169/82; TEMP 97.7; O2SAT 97
[2023-11-23 04:00] VITALS: BP 127/66; TEMP 97.9; O2SAT 96
[2023-11-23 21:24] VITALS: BP 129/66; TEMP 97.5; O2SAT 96
[2023-11-24 04:50] VITALS: BP 117/64; TEMP 97.5; O2SAT 97
[2023-11-24] MEDS: MOM 30ML SUSPENSION UDC PO PRN (09:27)
[2023-11-24 19:10] VITALS: BP 146/64; TEMP 97.4; O2SAT 96
[2023-11-25 04:25] VITALS: BP 142/69; TEMP 97.5; O2SAT 98
[2023-11-26 04:57] VITALS: BP 143/83; TEMP 97.5; O2SAT 96
[2023-11-27 05:11] VITALS: BP 131/61; TEMP 98.1; O2SAT 96
[2023-11-28 04:52] VITALS: BP 121/65; TEMP 97.3; O2SAT 97
[2023-11-29 04:39] VITALS: BP 139/73; TEMP 97.3; O2SAT 98
[2023-11-29 10:30] LABS: HEMOGLOBIN 12.9 g/dl (12.0-15.5); MEAN CORPUSCULAR HEMOGLOBIN 30.6 pg (27.0-33.0); MEAN CORPUSCULAR HGB CONC 32.3 g/dl (32.0-36.5); MEAN CORPUSCULAR VOLUME 94.8 fl (80.0-96.0); PLATELET COUNT, AUTOMATED 312 10^3/uL (150-450); RED BLOOD COUNT 4.22 10^6/uL (4.00-5.40); WHITE BLOOD COUNT 10.4 10^3/uL (4.0-10.0)
[2023-11-29 10:52] LABS: ALBUMIN 3.1 G/DL (3.2-5.2); ALKALINE PHOSPHATASE 65 U/L (46-116); ALT/SGPT 17 U/L (7.0-40); AST/SGOT 11 U/L (<34); BILIRUBIN,TOTAL 0.2 MG/DL (0.3-1.2); BLOOD UREA NITROGEN 25 MG/DL (9-23); CALCIUM LEVEL 9.3 MG/DL (8.3-10.6); CARBON DIOXIDE LEVEL 27 MMOL/L (20-31); CHLORIDE LEVEL 108 MMOL/L (98-107); CREATININE FOR GFR 0.76 MG/DL (0.55-1.30); GLOMERULAR FILTRATION RATE > 60.0 (>39); GLUCOSE, FASTING 185 MG/DL (74-106); POTASSIUM SERUM 3.8 MMOL/L (3.5-5.1); SODIUM LEVEL 140 MMOL/L (136-145); TOTAL PROTEIN 6.4 G/DL (5.7-8.2)
[2023-11-29] MEDS: LATANOPROST 0.005% OPHTH SOLN 2.5 ML OU SCH (21:55)
[2023-11-29] MEDS: metFORMIN (GLUCOPHAGE) 1000MG TABLET PO SCH (21:55)
[2023-11-30 05:01] VITALS: BP 150/79; TEMP 98.2; O2SAT 99
[2023-11-30] MEDS: BACTRIM 160MG/800MG DS TAB PO SCH (05:09)
[2023-12-01 04:00] VITALS: BP 149/79; TEMP 97.9; O2SAT 94
[2023-12-01 08:20] VITALS: BP 146/71
[2023-12-02 04:29] VITALS: BP 131/69; TEMP 98.4; O2SAT 98
[2023-12-03 04:00] VITALS: BP 135/75; TEMP 97.9; O2SAT 97
[2023-12-03] MEDS: ONDANSETRON 4MG TAB PO ONE (12:56)
[2023-12-04 04:00] VITALS: BP 144/78; TEMP 98.6; O2SAT 98
[2023-12-04] MEDS: ONDANSETRON 4MG TAB PO PRN (17:28)
[2023-12-05 03:23] VITALS: BP 134/73; TEMP 97.9; O2SAT 99
[2023-12-06 04:00] VITALS: BP 131/74; TEMP 97.5; O2SAT 99
[2023-12-06 18:43] VITALS: BP 123/68; TEMP 97.2; O2SAT 99
[2023-12-06 18:45] LABS: HEMATOCRIT 37.9 % (36.0-47.0); HEMOGLOBIN 12.1 g/dl (12.0-15.5); MEAN CORPUSCULAR HEMOGLOBIN 30.5 pg (27.0-33.0); MEAN CORPUSCULAR HGB CONC 31.9 g/dl (32.0-36.5); MEAN CORPUSCULAR VOLUME 95.5 fl (80.0-96.0); PLATELET COUNT, AUTOMATED 295 10^3/uL (150-450); RED BLOOD COUNT 3.97 10^6/uL (4.00-5.40); WHITE BLOOD COUNT 8.9 10^3/uL (4.0-10.0)
[2023-12-06 19:11] LABS: ALBUMIN 3.4 G/DL (3.2-5.2); BILIRUBIN,TOTAL 0.3 MG/DL (0.3-1.2); CALCIUM LEVEL 9.4 MG/DL (8.3-10.6); CREATININE FOR GFR 1.11 MG/DL (0.55-1.30); GLOMERULAR FILTRATION RATE 51.3 (>39); POTASSIUM SERUM 4.6 MMOL/L (3.5-5.1); TOTAL PROTEIN 6.5 G/DL (5.7-8.2)
[2023-12-07 04:28] VITALS: BP 104/71; TEMP 97.7; O2SAT 97
[2023-12-07 11:45] VITALS: BP 117/63; TEMP 98.1; O2SAT 99
[2023-12-08 04:05] VITALS: BP 130/68; TEMP 98.1; O2SAT 97
[2023-12-09 04:17] VITALS: BP 131/85; TEMP 98.6; O2SAT 98
[2023-12-09 12:00] VITALS: BP 119/78; TEMP 98.6; O2SAT 98
[2023-12-10 04:48] VITALS: BP 115/72; TEMP 98.1; O2SAT 97
[2023-12-10] MEDS: MIRALAX *UNIT DOSE* 17GM PACKET PO SCH (14:31)
[2023-12-10] MEDS: METAMUCIL (PSYLLIUM) PACKET PO SCH (20:32)
[2023-12-11 04:30] VITALS: BP 144/82; TEMP 98.1; O2SAT 97
[2023-12-12 04:28] VITALS: BP 112/79; TEMP 97.5; O2SAT 97
[2023-12-12 12:00] VITALS: BP 119/66; TEMP 98.8; O2SAT 96
[2023-12-13 04:39] VITALS: BP 118/65; TEMP 98.4; O2SAT 100
[2023-12-14 04:08] VITALS: BP 117/70; TEMP 97.5; O2SAT 98
[2023-12-15 04:15] VITALS: BP 122/72; TEMP 97; O2SAT 98
[2023-12-16 04:42] VITALS: BP 113/74; TEMP 97.9; O2SAT 96
[2023-12-16 08:36] VITALS: BP 112/76
[2023-12-17 04:39] VITALS: BP 113/53; TEMP 97; O2SAT 94
[2023-12-18 04:29] VITALS: BP 154/89; TEMP 97.9; O2SAT 96
[2023-12-19] MEDS ORDERED: OMEPRAZOLE 20MG CAP As Ordered ONE (10:25)
[2023-12-19] MEDS ORDERED: LORATADINE 10 MG TAB As Ordered ONE (10:25)
[2023-12-19 14:22] LABS: ALKALINE PHOSPHATASE 55 U/L (46-116); ALT/SGPT 13 U/L (7.0-40); AST/SGOT 10 U/L (<34); BILIRUBIN,TOTAL 0.3 MG/DL (0.3-1.2); BLOOD UREA NITROGEN 29 MG/DL (9-23); CALCIUM LEVEL 9.5 MG/DL (8.3-10.6); CARBON DIOXIDE LEVEL 31 MMOL/L (20-31); CHLORIDE LEVEL 106 MMOL/L (98-107); CREATININE FOR GFR 0.92 MG/DL (0.55-1.30); GLOMERULAR FILTRATION RATE > 60.0 (>39); GLUCOSE, FASTING 146 MG/DL (74-106); PHOSPHORUS LEVEL 4.4 MG/DL (2.4-5.1); POTASSIUM SERUM 4.2 MMOL/L (3.5-5.1); SODIUM LEVEL 142 MMOL/L (136-145); TOTAL PROTEIN 6.3 G/DL (5.7-8.2)
[2023-12-19 16:44] LABS: BASO # 0.1 10^3/uL (0.0-0.2); BASO % 0.5 % (0.0-1.0); EOS # 0.4 10^3/uL (0.0-0.5); EOS % 3.7 % (0.0-3.0); HEMATOCRIT 37.2 % (36.0-47.0); HEMOGLOBIN 11.8 g/dl (12.0-15.5); LYMPH # 2.3 10^3/uL (1.5-5.0); LYMPH % 22.6 % (24.0-44.0); MEAN CORPUSCULAR HEMOGLOBIN 30.5 pg (27.0-33.0); MEAN CORPUSCULAR HGB CONC 31.7 g/dl (32.0-36.5); MEAN CORPUSCULAR VOLUME 96.1 fl (80.0-96.0); MONO # 0.6 10^3/uL (0.0-0.8); MONO % 5.7 % (2.0-8.0); NEUTROPHILS # 6.8 10^3/uL (1.5-8.5); NEUTROPHILS % 67.2 % (36.0-66.0); PLATELET COUNT, AUTOMATED 345 10^3/uL (150-450); RED BLOOD COUNT 3.87 10^6/uL (4.00-5.40); WHITE BLOOD COUNT 10.1 10^3/uL (4.0-10.0)
[2023-12-19 23:26] VITALS: BP 123/71; TEMP 97.8; O2SAT 96
[2023-12-20 05:40] VITALS: BP 119/68; TEMP 98.2; O2SAT 94
[2023-12-21 04:00] VITALS: BP 96/60; TEMP 97.7; O2SAT 98
[2023-12-21 04:30] VITALS: BP 102/68
[2023-12-21 11:24] LABS: HEMATOCRIT 37.6 % (36.0-47.0); MEAN CORPUSCULAR HEMOGLOBIN 30.5 pg (27.0-33.0); MEAN CORPUSCULAR HGB CONC 31.9 g/dl (32.0-36.5); MEAN CORPUSCULAR VOLUME 95.7 fl (80.0-96.0); PLATELET COUNT, AUTOMATED 336 10^3/uL (150-450); RED BLOOD COUNT 3.93 10^6/uL (4.00-5.40); WHITE BLOOD COUNT 8.7 10^3/uL (4.0-10.0)
[2023-12-21 11:53] LABS: C REACTIVE PROTEIN QUANTITATIV < 0.40 MG/DL (<1.0)
[2023-12-21 11:54] LABS: BLOOD UREA NITROGEN 22 MG/DL (9-23); CALCIUM LEVEL 9.6 MG/DL (8.3-10.6); CARBON DIOXIDE LEVEL 32 MMOL/L (20-31); CHLORIDE LEVEL 107 MMOL/L (98-107); CREATININE FOR GFR 0.76 MG/DL (0.55-1.30); GLOMERULAR FILTRATION RATE > 60.0 (>39); GLUCOSE, FASTING 91 MG/DL (74-106); SODIUM LEVEL 144 MMOL/L (136-145)
[2023-12-21 11:55] LABS: ATYPICAL LYMPH 7 % (0-5); EOSINOPHILS 9 % (0-3); LYMPHOCYTES 16 % (16-44); MONOCYTES 5 % (0-5); NEUTROPHILS 62 % (28-66)
[2023-12-21 11:56] LABS: PLATELET ESTIMATE NORMAL (NORMAL)
[2023-12-21 12:01] LABS: PROCALCITONIN 0.04 ng/ml
[2023-12-21] MEDS: predniSONE 20 MG TAB PO ONE (12:39)
[2023-12-21] MEDS: INDOMETHACIN 25 MG CAP PO SCH (17:10)
[2023-12-22 04:28] VITALS: BP 112/69; TEMP 97.9; O2SAT 98
[2023-12-22] MEDS: predniSONE 20 MG TAB PO SCH (08:17)
[2023-12-23 04:32] VITALS: BP 119/64; TEMP 98.6; O2SAT 97
[2023-12-24 04:08] VITALS: BP 173/68; TEMP 98.2; O2SAT 97
[2023-12-24] MEDS ORDERED: PILL CUTTER 1 EACH XX PRN (13:50)
[2023-12-25] MEDS: predniSONE 20 MG TAB PO SCH (09:37)
[2023-12-26 04:39] VITALS: BP 151/59; TEMP 97.9; O2SAT 97
[2023-12-26] MEDS ORDERED: DOCUSATE SODIUM 100MG CAPSULE PO PRN (08:35)
[2023-12-26] MEDS ORDERED: MIRALAX *UNIT DOSE* 17GM PACKET PO PRN (08:35)
[2023-12-26] MEDS ORDERED: METAMUCIL (PSYLLIUM) PACKET PO PRN (08:35)
[2023-12-27 04:35] VITALS: BP 170/98; TEMP 98.1; O2SAT 97
[2023-12-27 12:00] VITALS: BP 134/68
[2023-12-28 04:08] VITALS: BP 144/74; TEMP 97.5; O2SAT 97
[2023-12-29 04:22] VITALS: BP 106/59; TEMP 97.2; O2SAT 98
[2023-12-29] MEDS: predniSONE 10MG TAB PO SCH (08:23)
[2023-12-30 04:00] VITALS: BP 139/69; TEMP 97.5; O2SAT 98
[2023-12-30 20:00] VITALS: BP 117/45; TEMP 97.7; O2SAT 98
[2023-12-31 04:00] VITALS: BP 117/73; TEMP 97.7; O2SAT 99
[2024-01-01 04:00] VITALS: BP 129/68; TEMP 98.6; O2SAT 98
[2024-01-01 12:00] VITALS: BP 122/68; TEMP 97.7; O2SAT 98
[2024-01-02 12:05] VITALS: BP 112/52; TEMP 97.7; O2SAT 98
[2024-01-03 04:44] VITALS: BP 102/79; TEMP 97.3; O2SAT 96
[2024-01-04 05:39] VITALS: BP 121/74; TEMP 98.3; O2SAT 98
[2024-01-05 04:07] VITALS: BP 131/73; TEMP 97.7; O2SAT 97
[2024-01-05 13:14] LABS: BASO % 0.3 % (0.0-1.0); EOS # 0.3 10^3/uL (0.0-0.5); EOS % 2.4 % (0.0-3.0); HEMATOCRIT 35.3 % (36.0-47.0); HEMOGLOBIN 11.2 g/dl (12.0-15.5); LYMPH # 1.7 10^3/uL (1.5-5.0); LYMPH % 13.6 % (24.0-44.0); MEAN CORPUSCULAR HEMOGLOBIN 29.5 pg (27.0-33.0); MEAN CORPUSCULAR HGB CONC 31.7 g/dl (32.0-36.5); MEAN CORPUSCULAR VOLUME 92.9 fl (80.0-96.0); MONO # 0.8 10^3/uL (0.0-0.8); MONO % 6.6 % (2.0-8.0); NEUTROPHILS # 9.3 10^3/uL (1.5-8.5); NEUTROPHILS % 76.7 % (36.0-66.0); PLATELET COUNT, AUTOMATED 296 10^3/uL (150-450); WHITE BLOOD COUNT 12.2 10^3/uL (4.0-10.0)
[2024-01-05 13:31] LABS: CALCIUM LEVEL 8.9 MG/DL (8.3-10.6); CREATININE FOR GFR 0.99 MG/DL (0.55-1.30); GLOMERULAR FILTRATION RATE 58.5 (>39); POTASSIUM SERUM 4.9 MMOL/L (3.5-5.1)
[2024-01-05] MEDS: QUEtiapine FUMARATE 50MG TAB PO ONE (14:00)
[2024-01-05] MEDS: LevoFLOXacin 750 MG TABLET PO ONE (16:43)
[2024-01-06 03:55] VITALS: BP 128/73; TEMP 97.7; O2SAT 97
[2024-01-07 04:00] VITALS: TEMP 98.2; O2SAT 97
[2024-01-07] MEDS: LevoFLOXacin 750 MG TABLET PO SCH (05:27)
[2024-01-07 08:00] VITALS: BP 168/71; TEMP 98.8; O2SAT 96
[2024-01-08 07:55] VITALS: BP 109/68
[2024-01-08] MEDS ORDERED: RAME8TAB2 PO (17:30)
[2024-01-08] MEDS ORDERED: HYDR50TA70 PO (17:30)
[2024-01-08] MEDS ORDERED: MIRA33506 PO (17:30)
[2024-01-09 04:41] VITALS: BP 113/68; TEMP 98.2; O2SAT 96
[2024-01-09] MEDS ORDERED: SERO1TAB3 PO (07:45)
[2024-01-09] MEDS: QUEtiapine FUMARATE 25 MG TAB PO SCH (07:50)
== END 2024-01-09 10:50 | DRG 57 ==
LOC: M ED 13:12 → M ED INP 11-19 14:15 → M MS5PR 11-19 15:15
PROVIDERS: ADMIT Internal Medicine; ATTEND Internal Medicine
DX: I69.318 Other symptoms and signs involving cognitive functions following cerebral infarction (principal); F01.511 Vascular dementia, unspecified severity, with agitation; R44.0 Auditory hallucinations; Z74.1 Need for assistance with personal care; I10 Essential (primary) hypertension; E78.5 Hyperlipidemia, unspecified; M10.9 Gout, unspecified; F41.9 Anxiety disorder, unspecified; F31.9 Bipolar disorder, unspecified; K21.9 Gastro-esophageal reflux disease without esophagitis; E11.9 Type 2 diabetes mellitus without complications; H40.9 Unspecified glaucoma; I48.0 Paroxysmal atrial fibrillation; Z90.79 Acquired absence of other genital organ(s); Z79.84 Long term (current) use of oral hypoglycemic drugs; Z79.899 Other long term (current) drug therapy; Z88.1 Allergy status to other antibiotic agents; Z63.8 Other specified problems related to primary support group